=== PATIENT | female | born 1970 | race Caucasian/White ===

== ENCOUNTER → 2016-10-12 | Outpatient (REF) | payer BC, MEDICAID | LOC: M LAB REF 17:12 | PROVIDERS: ATTEND Physician Assistant Medical | DX: J02.9 Acute pharyngitis, unspecified (principal) ==

== ENCOUNTER → 2016-11-03 | Outpatient (CLI) | payer BC, MEDICAID ==
[2016-11-03 20:23] LABS: BASO % 0.4 % (0.0-1.0); EOS # 0.2 K/mm3 (0.0-0.50); EOS % 3.4 % (0.0-3.0); LYMPH # 1.4 K/mm3 (1.5-4.5); LYMPH % 21.1 % (24.0-44.0); MEAN CORPUSCULAR HEMOGLOBIN 28.5 pg (27.0-33.0); MEAN CORPUSCULAR HGB CONC 31.7 g/dl (32.0-36.5); MEAN CORPUSCULAR VOLUME 89.9 fl (80.0-96.0); MONO # 0.3 K/mm3 (0.0-0.8); MONO % 4.4 % (0.0-5.0); NEUTROPHILS # 4.5 K/mm3 (1.8-7.7); NEUTROPHILS % 68.6 % (36.0-66.0); WHITE BLOOD COUNT 6.6 K/mm3 (4.0-10.0)
[2016-11-03 20:25] LABS: ALBUMIN 3.7 GM/DL (3.2-5.2); ALBUMIN/GLOBULIN RATIO 1.06 (1.00-1.93); ALKALINE PHOSPHATASE 82 U/L (45-117); ALT/SGPT 18 U/L (12-78); ANION GAP 11 MEQ/L (8-16); AST/SGOT 12 U/L (15-37); BILIRUBIN,TOTAL 0.5 MG/DL (0.2-1.0); BLOOD UREA NITROGEN 12 MG/DL (7-18); CALCIUM LEVEL 8.6 MG/DL (8.5-10.1); CARBON DIOXIDE LEVEL 22 MEQ/L (21-32); CHLORIDE LEVEL 109 MEQ/L (98-107); CHOLESTEROL LEVEL 180 MG/DL (<200); CREATININE FOR GFR 0.96 MG/DL (0.55-1.02); FOLATE > 24.0 NG/ML (>5.4); GLOMERULAR FILTRATION RATE > 60.0 (>58); GLUCOSE, FASTING 91 MG/DL (70-105); POTASSIUM SERUM 4.2 MEQ/L (3.5-5.1); SODIUM LEVEL 142 MEQ/L (136-145); TOTAL PROTEIN 7.2 GM/DL (6.4-8.2); TRIGLYCERIDES LEVEL 183 MG/DL (<150); VITAMIN B12 LEVEL 623 PG/ML (247-911)
== END ==
LOC: M WUC 13:02
PROVIDERS: ATTEND Physician Assistant Medical
DX: E78.2 Mixed hyperlipidemia (principal); E55.9 Vitamin D deficiency, unspecified; R53.83 Other fatigue

== ENCOUNTER → 2017-02-05 | Outpatient (REF) | payer BC, MEDICAID | LOC: M LAB REF 16:56 | PROVIDERS: ATTEND Physician Assistant Medical | DX: L03.314 Cellulitis of groin (principal) ==

== ENCOUNTER → 2017-02-14 | Outpatient (CLI) | payer BC, MEDICAID ==
[2017-02-14 13:05] LABS: ALBUMIN 3.7 GM/DL (3.2-5.2); ALBUMIN/GLOBULIN RATIO 1.23 (1.00-1.93); ALKALINE PHOSPHATASE 71 U/L (45-117); ALT/SGPT 26 U/L (12-78); ANION GAP 3 MEQ/L (8-16); AST/SGOT 15 U/L (15-37); BILIRUBIN,TOTAL 0.3 MG/DL (0.2-1.0); BLOOD UREA NITROGEN 11 MG/DL (7-18); CALCIUM LEVEL 8.9 MG/DL (8.5-10.1); CARBON DIOXIDE LEVEL 30 MEQ/L (21-32); CHLORIDE LEVEL 106 MEQ/L (98-107); CHOLESTEROL LEVEL 175 MG/DL (<200); CREATININE FOR GFR 1.05 MG/DL (0.55-1.02); GLOMERULAR FILTRATION RATE > 60.0 (>58); GLUCOSE, FASTING 108 MG/DL (70-105); POTASSIUM SERUM 4.7 MEQ/L (3.5-5.1); SODIUM LEVEL 139 MEQ/L (136-145); TOTAL PROTEIN 6.7 GM/DL (6.4-8.2); TRIGLYCERIDES LEVEL 194 MG/DL (<150)
== END ==
LOC: M WUC 08:59
PROVIDERS: ATTEND Physician Assistant Medical
DX: E78.2 Mixed hyperlipidemia (principal); E55.9 Vitamin D deficiency, unspecified

== ENCOUNTER → 2017-06-22 | Outpatient (CLI) | payer BC, MEDICAID ==
[2017-06-22 15:08] LABS: BASO % 0.5 % (0.0-1.0); EOS # 0.2 10^3/uL (0.0-0.50); EOS % 2.2 % (0.0-3.0); IMMATURE GRANULOCYTE % 0.3 % (0-0); LYMPH # 1.7 10^3/uL (1.5-4.5); LYMPH % 21.8 % (24.0-44.0); MEAN CORPUSCULAR HEMOGLOBIN 28.3 pg (27.0-33.0); MEAN CORPUSCULAR HGB CONC 32.4 g/dl (32.0-36.5); MEAN CORPUSCULAR VOLUME 87.2 fl (80.0-96.0); MONO # 0.3 10^3/uL (0.0-0.8); MONO % 4.4 % (0.0-5.0); NEUTROPHILS # 5.5 10^3/uL (1.8-7.7); NEUTROPHILS % 70.8 % (36.0-66.0); PLATELET COUNT, AUTOMATED 223 10^3/uL (150-450); RED CELL DISTRIBUTION WIDTH 13.6 % (11.5-14.5); WHITE BLOOD COUNT 7.8 10^3/uL (4.0-10.0)
[2017-06-22 15:19] LABS: ALBUMIN 3.6 GM/DL (3.2-5.2); ALBUMIN/GLOBULIN RATIO 1.09 (1.00-1.93); ALKALINE PHOSPHATASE 76 U/L (45-117); ALT/SGPT 18 U/L (12-78); ANION GAP 5 MEQ/L (8-16); AST/SGOT 14 U/L (15-37); BILIRUBIN,TOTAL 0.3 MG/DL (0.2-1.0); BLOOD UREA NITROGEN 12 MG/DL (7-18); CALCIUM LEVEL 8.8 MG/DL (8.5-10.1); CARBON DIOXIDE LEVEL 27 MEQ/L (21-32); CHLORIDE LEVEL 107 MEQ/L (98-107); CHOLESTEROL LEVEL 164 MG/DL (<200); CREATININE FOR GFR 0.95 MG/DL (0.55-1.02); GLOMERULAR FILTRATION RATE > 60.0 (>58); GLUCOSE, FASTING 83 MG/DL (70-105); POTASSIUM SERUM 4.2 MEQ/L (3.5-5.1); SODIUM LEVEL 139 MEQ/L (136-145); TOTAL PROTEIN 6.9 GM/DL (6.4-8.2); TRIGLYCERIDES LEVEL 117 MG/DL (<150)
== END ==
LOC: M LAB 13:23
PROVIDERS: ATTEND Physician Assistant Medical
DX: E78.2 Mixed hyperlipidemia (principal); E55.9 Vitamin D deficiency, unspecified

== ENCOUNTER 2018-04-06 11:47 | Emergency (ER) | payer BC, MEDICAID ==
[2018-04-06] MEDS: diazePAM 5 MG TAB PO (12:32)
[2018-04-06] MEDS: KETOROLAC 60 MG/2 ML VIAL (J1885) IM (12:35)
== END 2018-04-06 13:30 | disposition home or self-care (01) ==
LOC: M ED 11:47
DX: M62.830 Muscle spasm of back (principal); M62.838 Other muscle spasm; M54.12 Radiculopathy, cervical region; F41.9 Anxiety disorder, unspecified; Z79.899 Other long term (current) drug therapy; F17.210 Nicotine dependence, cigarettes, uncomplicated
CPT/HCPCS: J1885

== ENCOUNTER → 2018-04-20 | Outpatient (CLI) | payer BC | LOC: M RAD 12:14 | DX: M54.2 Cervicalgia (principal) ==

== ENCOUNTER → 2018-05-17 | Outpatient (CLI) | payer BC, MEDICAID ==
[2018-05-17 14:05] LABS: CHOLESTEROL LEVEL 154 MG/DL (<200); CHOLESTEROL RISK RATIO 3.581 (<5); HDL CHOLESTEROL 43 MG/DL (>40); LDL CHOLESTEROL 89 MG/DL (<100); NON-HDL-C 111 MG/DL; TRIGLYCERIDES LEVEL 111 MG/DL (<150)
[2018-05-17 14:34] LABS: ESTIMATED AVERAGE GLUCOSE 126 MG/DL (60-110)
[2018-05-17 14:38] LABS: HIV 1&2 SCREEN CENTAUR NEGATIVE (NEGATIVE)
[2018-05-17 14:38] LABS: HEPATITIS C VIRUS ABY INDEX 0.1 INDEX (<0.8)
[2018-05-17 15:21] LABS: CHLAMYDIA DNA AMPLIFICATION NEGATIVE (NEGATIVE); GC DNA AMPLIFICATION NEGATIVE (NEGATIVE)
[2018-05-22 14:20] LABS: HLA-B27 Negative (.)
== END ==
LOC: M WUC 11:50
DX: M54.2 Cervicalgia (principal); Z20.2 Contact with and (suspected) exposure to infections with a predominantly sexual mode of transmission; Z13.1 Encounter for screening for diabetes mellitus; Z13.220 Encounter for screening for lipoid disorders
CPT/HCPCS: 83036

== ENCOUNTER 2018-06-13 08:01 | Outpatient (RCR) | payer MEDICAID | END 2018-06-26 | LOC: M PT 08:01 | DX: M54.12 Radiculopathy, cervical region (principal); R29.898 Other symptoms and signs involving the musculoskeletal system | CPT/HCPCS: 97010 ==

== ENCOUNTER 2018-07-04 08:18 | Outpatient (RCR) | payer OTHER | END 2018-07-26 | LOC: M PT 08:18 | DX: M54.12 Radiculopathy, cervical region (principal); N39.3 Stress incontinence (female) (male) | CPT/HCPCS: 97010 ==

== ENCOUNTER 2018-08-13 12:45 | Outpatient (RCR) | payer OTHER ==
[~2018-08-13 12:45] MED LIST: ACETAMINOPHEN-COD; BUSP10TA PO; CITA-231 PO; GABA-843; KETO10TAB PO; PERC5TAB12 PO; PRED20TA PO; REST0.05 OU; ROPI0.5T; SUMA50TA2; TIZA2TA; VALI5TAB PO
== END 2018-08-26 ==
LOC: M PT 12:45
PROVIDERS: ATTEND Orthopaedic Surgery
DX: M54.12 Radiculopathy, cervical region (principal)

== ENCOUNTER → 2018-10-08 | Outpatient (REF) | payer OTHER ==
[2018-10-08 19:16] LABS: C REACTIVE PROTEIN QUANTITATIV 0.51 MG/DL (0.00-0.30); RHEUMATOID FACTOR QUANT < 10.0 IU/ML (<15.0)
[2018-10-10 18:42] LABS: Lyme Disease IgG/IgM Antibodie <0.91 ISR (0.00-0.90); Lyme Disease IgM Ab Quantitati <0.80 index (0.00-0.79)
[2018-10-11 00:07] LABS: ANA (HEP2) Negative (.)
== END ==
LOC: M SFHCPLAZ 16:00
PROVIDERS: ATTEND Family Medicine
DX: M13.0 Polyarthritis, unspecified (principal)

== ENCOUNTER 2018-10-23 12:45 | Outpatient (RCR) | payer OTHER | END 2018-10-24 | LOC: M PT 12:45 | PROVIDERS: ATTEND Orthopaedic Surgery | DX: M25.512 Pain in left shoulder (principal); M25.511 Pain in right shoulder; S46.009A Unspecified injury of muscle(s) and tendon(s) of the rotator cuff of unspecified shoulder, initial encounter; Y92.89 Other specified places as the place of occurrence of the external cause; Y93.89 Activity, other specified; X58.XXXA Exposure to other specified factors, initial encounter; Y99.8 Other external cause status ==

== ENCOUNTER → 2018-12-23 | Outpatient (CLI) | payer OTHER, MEDICAID ==
[~2018-12-23] MED LIST changes: -CITA-231 PO; +CITA40TA6 PO
--- NOTE | 2018-12-24 02:26 | REP ---
Clinical: Right shoulder pain. Technique: Internal rotation, external rotation, and Y view of the right shoulder. Findings: The glenohumeral joint is intact and normal. Cortical irregularity and moderate spurring at the acromioclavicular joint is appreciated with subtle but bulky inferior spur along the distal aspect of the acromion. The subacromial space is normal. No calcified loose bodies are identified. The surrounding soft tissues are normal. Impression: Moderate osteoarthritic degenerative changes involving the acromioclavicular joint. Glenohumeral joint appears normal. Electronically Signed by Arden Grider MD 12/24/2018 02:17 A
== END ==
LOC: M RAD 11:39
PROVIDERS: ATTEND Nurse Practitioner Family
DX: M19.011 Primary osteoarthritis, right shoulder (principal)

== ENCOUNTER 2019-04-24 10:17 | Outpatient (RCR) | payer OTHER | END 2019-04-26 | LOC: M PT 10:17 | PROVIDERS: ATTEND Family Medicine | DX: Z51.89 Encounter for other specified aftercare (principal); M54.12 Radiculopathy, cervical region ==

== ENCOUNTER 2019-04-29 10:31 | Outpatient (RCR) | payer OTHER | END 2019-05-26 | LOC: M PT 10:31 | PROVIDERS: ATTEND Family Medicine | DX: Z51.89 Encounter for other specified aftercare (principal); M54.12 Radiculopathy, cervical region ==

== ENCOUNTER 2019-10-24 12:11 | Day surgery (SDC) | payer OTHER ==
[~2019-10-24] VITALS: Ht 167.6 cm; Wt 127.3 kg
[~2019-10-24 12:11] MED LIST changes: -ROPI0.5T; +ROPI0.5T3
[2019-10-24] MEDS ORDERED: GABA-845 (12:29)
[2019-10-24] MEDS ORDERED: DULO1CAP6 (12:29)
[2019-10-24] MEDS ORDERED: MORPHINE 4 MG/ML 1ML VIAL/SYRINGE (J2270) IV ONE (12:30)
[2019-10-24] MEDS ORDERED: ONDANSETRON 4MG/2ML VIAL (J2405) IV ONE (12:30)
[2019-10-24] MEDS ORDERED: MORPHINE 4 MG/ML 1ML VIAL/SYRINGE (J2270) IV PRN (13:00)
--- NOTE | 2019-10-24 13:38 | REP ---
Left femur four views : There is no fracture or dislocation. Mineralization and joint spaces are normal. There are no calcifications or foreign bodies. Impression: Negative left femur . Electronically Signed by Dada Thomas MD 10/24/2019 01:29 P
--- NOTE | 2019-10-24 13:42 | REP ---
Left tibia-fibula: There is a casting material surrounding the lower leg and ankle. The ankle dislocation that was identified on the ankle series performed earlier today has been reduced. The ankle mortise is widened medially. There is a nondisplaced spiral fracture of the proximal fibular shaft. Electronically Signed by Dada Thomas MD 10/24/2019 01:34 P
[2019-10-24] MEDS ORDERED: CYCL10TA (14:08)
--- NOTE | 2019-10-24 14:10 | REP ---
LEFT ANKLE: Two views. HISTORY: Trauma. FINDINGS: AP and lateral views of the left ankle demonstrate a lateral tibiotalar ankle joint dislocation. The distal fibula remains normally aligned with the lateral surface of the talus. The distal tibiofibular interval is markedly widened indicating disruption of the tibiofibular syndesmosis. There is no visible fracture on these views. Large Achilles and plantar calcaneal spurs are noted. IMPRESSION: Lateral tibiotalar ankle dislocation with disruption of the distal tibiofibular syndesmosis. No definite fracture. Recommend tib/fib radiographs. Electronically Signed by Gary Durham MD 10/24/2019 02:54 P
[2019-10-24 16:03] LABS: BASO # 0.1 10^3/uL (0.0-0.2); BASO % 0.5 % (0.0-1.0); EOS # 0.1 10^3/uL (0.0-0.5); EOS % 0.7 % (0.0-3.0); HEMATOCRIT 47.4 % (36.0-47.0); HEMOGLOBIN 14.8 g/dl (12.0-15.5); LYMPH # 1.6 10^3/uL (1.5-5.0); LYMPH % 11.7 % (24.0-44.0); MEAN CORPUSCULAR HEMOGLOBIN 27.3 pg (27.0-33.0); MEAN CORPUSCULAR HGB CONC 31.2 g/dl (32.0-36.5); MEAN CORPUSCULAR VOLUME 87.5 fl (80.0-96.0); MONO # 0.5 10^3/uL (0.0-0.8); MONO % 3.5 % (0.0-5.0); NEUTROPHILS # 11.1 10^3/uL (1.5-8.5); NEUTROPHILS % 83.2 % (36.0-66.0); PLATELET COUNT, AUTOMATED 284 10^3/uL (150-450); RED BLOOD COUNT 5.42 10^6/uL (4.00-5.40); WHITE BLOOD COUNT 13.3 10^3/uL (4.0-10.0)
[2019-10-24 16:26] LABS: BLOOD UREA NITROGEN 13 MG/DL (7-18); CALCIUM LEVEL 8.7 MG/DL (8.5-10.1); CARBON DIOXIDE LEVEL 27 MEQ/L (21-32); CHLORIDE LEVEL 110 MEQ/L (98-107); CREATININE FOR GFR 0.99 MG/DL (0.55-1.30); GLOMERULAR FILTRATION RATE > 60.0 (>58); GLUCOSE, FASTING 86 MG/DL (70-100); SODIUM LEVEL 141 MEQ/L (136-145)
[2019-10-24] MEDS ORDERED: PERCOCET 5MG/325MG TAB As Ordered ONE (19:00)
[2019-10-24] MEDS ORDERED: ceFAZolin 1GM INJ (J0690 PER 500MG) As Ordered ONE (19:00)
[2019-10-24] MEDS ORDERED: PERCOCET 5MG/325MG TAB PO ONE (19:02)
[2019-10-24] MEDS ORDERED: ceFAZolin 2 GM/D5W 50 ML IV BAG (J0690 PER 500MG) As Ordered ONE (19:04)
[2019-10-24] MEDS ORDERED: METOCLOPRAMIDE INJ 10MG/2ML VIAL (J2765) As Ordered ONE ×2 (19:10→19:55)
[2019-10-24] MEDS ORDERED: LIDOCAINE 2% INJ 100 MG/5 ML SDV (FOR ANES.) As Ordered ONE (19:10)
[2019-10-24] MEDS ORDERED: MIDAZOLAM INJ 2 MG/2 ML VIAL (J2250) As Ordered ONE (19:10)
[2019-10-24] MEDS ORDERED: fentaNYL 100 MCG/2 ML INJECTION (J3010) As Ordered ONE (19:10)
[2019-10-24] MEDS ORDERED: ONDANSETRON 4MG/2ML VIAL (J2405) As Ordered ONE (19:10)
[2019-10-24] MEDS ORDERED: dexameTHASONE 4 MG/ML 1ML VIAL (J1100) As Ordered ONE (19:10)
[2019-10-24] MEDS ORDERED: propofoL 500 MG/50 ML VIAL As Ordered ONE (19:55)
[2019-10-24] MEDS ORDERED: BUPIVACAINE/EPIN 0.25% 30 ML VIAL As Ordered ONE (19:58)
[2019-10-24] MEDS ORDERED: PHENYLephrine HCL 500 MCG/5 ML (100MCG/ML) SYRINGE (J2370) As Ordered ONE (20:29)
[2019-10-24] MEDS ORDERED: MORPHINE 2 MG/ML 1ML VIAL (J2270) IV PRN (21:15)
[2019-10-24] MEDS ORDERED: ONDANSETRON 4MG/2ML VIAL (J2405) IV PRN (21:15)
[2019-10-24] MEDS ORDERED: LR 1,000 ML IV SCH (21:15)
[2019-10-24] MEDS ORDERED: PROMETHAZINE INJ 25 MG/ML VIAL (J2550) IV PRN (21:15)
[2019-10-24] MEDS ORDERED: oxyCODONE 5MG TAB PO PRN (21:15)
[2019-10-24] MEDS ORDERED: D5W/LR 1,000 ML IV SCH (21:15)
[2019-10-24] MEDS ORDERED: PERCOCET 5MG/325MG TAB PO PRN ×2 (21:15)
[2019-10-24] MEDS ORDERED: fentaNYL 100 MCG/2 ML INJECTION (J3010) IV PRN (21:15)
[2019-10-24 21:30] VITALS: BP 136/73
[2019-10-24 22:00] VITALS: BP 138/88
[2019-10-24 23:00] VITALS: BP 114/65
[2019-10-25] VITALS: BP 105/62
[2019-10-25 01:00] VITALS: BP 106/64
[2019-10-25 02:00] VITALS: BP 106/64
[2019-10-25 06:00] VITALS: BP 131/76
--- NOTE | 2019-10-25 07:40 | ER ---
DATE OF CONSULTATION: 10/24/2019 CONSULTATION FOR THE EMERGENCY ROOM CHIEF COMPLAINT: Left ankle dislocation. HISTORY: 49-year-old female; she slipped on icy ground today and heard a snap. She was not able to ambulate, and there was deformity of the left ankle. Does not recall a previous injury to the ankle. She was brought to the emergency room (ER) for further evaluation where imaging studies reflected a syndesmotic injury, widening of mortise, dislocation of the ankle. The ankle was reduced partially in the ER by ER personnel. Orthopedics was consulted. The imaging accomplished reflected again some chronic changes at the medial malleolus, so possible old injury, including some calcification within what is presumed to be deltoid area. A proximal fibula fracture. ALLERGIES: No known drug allergies. MEDICATIONS: Medication list was reviewed with the patient and documented. MEDICAL HISTORY: Includes anxiety. SOCIAL HISTORY: Includes nicotine use, smoking. The patient has been nothing by mouth (n.p.o.). REVIEW OF SYSTEMS: She is only today complaining of left ankle pain. 12 other areas negative. CLINICAL EXAMINATION: She is alert, oriented, cooperative. Mood and affect appropriate. The left ankle is swollen, painful, in a posterior splint, pink, well-perfused. Toes: Sensate toes. No effusion at the knee. Contralateral right side: No swelling or pathology noted on the right. The patient is alert, oriented and cooperative. Mood and affect appropriate. Cardiac: Regular, about 80 beats per minute. She is not short of breath. She is conversant in [place]. IMPRESSION: Syndesmosis injury, deltoid ligament injury, possible chronic, proximal fibula fracture, ankle dislocation. RECOMMENDATIONS: I spoke with the patient about reduction of the syndesmosis and fixation with metal hardware. She agreed to that intervention. We completed a preoperative packet, including consent document and short-form history and physical. The consent involved a edwin discussion of the pathology involved, the procedure proposed, alternatives including doing nothing, and risks, including, but not limited to, pain, failure, need for more surgery, bleeding, blood loss, blood clots and other issues. The patient agreed to proceed with surgery. Coordinated operating room (OR) scheduling with the ER, OR personnel and anesthesia. I talked with the patient about potentially seeing our foot and ankle specialist postoperatively to determine whether any additional intervention could be indicated at the deltoid ligament. The patient is agreeable with that plan. For further details, please refer to the medical record.
[2019-10-25] MEDS ORDERED: ASPI-1 PO (08:26)
[2019-10-25] MEDS ORDERED: PERC5TAB12 PO ×2 (08:26→08:44)
[2019-10-25] MEDS ORDERED: METAMUCIL (PSYLLIUM) PACKET PO SCH (09:00)
[2019-10-25] MEDS ORDERED: ASPIRIN 81 MG ENTERIC TAB PO SCH (09:00)
[2019-10-25 10:00] VITALS: BP 128/72
--- NOTE | 2019-10-25 15:32 | RO ---
DATE OF PROCEDURE: 10/24/2019 PREOPERATIVE DIAGNOSIS: Left ankle syndesmosis rupture with dislocation, deltoid ligament also injured, proximal fibula fracture. POSTOPERATIVE DIAGNOSIS: Left ankle syndesmosis rupture with dislocation, deltoid ligament also injured, proximal fibula fracture. FINDINGS: Include unstable mortise, unstable ankle. PROCEDURE: Closed reduction of the left ankle with percutaneous pinning of the syndesmosis. SURGEON: Rolan Curry MD MRI TECHNICIAN: ANESTHESIA: Spinal, Dr. Mattson ESTIMATED BLOOD LOSS: Less than 5 mL. Replaced with crystalloid. No tourniquet was inflated COMPONENTS USED: Include 4.5 cannulated screw set, 46 mm times one, 50 mm times one, partially threaded both. INDICATIONS FOR SURGERY: Slip on ice, fracture-dislocation, syndesmosis injury. Consent reviewed in detail with the patient including a edwin discussion of the pathology involved, procedure proposed, alternatives including doing nothing, risks including but not limited to pain, failure, infection, bleeding, blood loss, incomplete relief of symptoms, need for additional surgery, possible need for hardware removal, and other issues. The patient agreed to proceed. DESCRIPTION OF PROCEDURE: Identified in the holding area, site and side verified, brought to the operating room. Once the spinal was in, we positioned in the usual fashion. Bump under the left hip. Tourniquet was applied but never inflated for this case. Sterilely prepped and draped in the usual fashion. Next, the fibula was palpated. I utilized fluoroscopy to localize the appropriate screw placement. This was marked with a marking pen. The sites were infiltrated with 0.25% Marcaine with epinephrine. Incision distally was made with a 15 blade knife, developed through subcuticular tissues to the lateral aspect of fibula. Fibular palpated using the Crile. I passed a 4.5 guidewire through the fibula into the tibia, placement of the guidewire verified fluoroscopically, AP and lateral plane, measured for a size 50 mm screw, drilled over the wire, the fibula, as well as the lateral cortex of the tibia. Placed the 50 mm partially threaded screw, visualized it fluoroscopically, AP and lateral plane. Next, additional proximal screw was placed approximately 2 cm proximal. That incision again made with a #15 blade, wire and screw placed in similar fashion, the proximal screw is 46 mm. Final fluoroscopic images in the AP and lateral plane were obtained. I did stress the mortise; it seemed to be stable. Next, once this was accomplished, I irrigated and closed the wounds using nylon stitch. Dressing was applied, sterile [place]bril over the dressing, regular cast padding, followed by placement of a short-leg cast on the left side. Next the patient was then able to be moved to the recovery room in good condition. For further details, please refer to the medical record.
--- NOTE | 2019-10-26 08:00 | REP ---
LEFT ANKLE: Four views of the left ankle are performed. These are fluoroscopic images. Initial images show widening of the medial mortise. There is subsequent placement of two metallic screws in the distal tibia and fibula. Osseous structures are well aligned on the final two images, and the ankle mortise appears anatomic. Fluoroscopy time is 35 seconds. Electronically Signed by Dada Cope MD 10/26/2019 06:07 P
== END 2019-10-25 11:55 | disposition home or self-care (01) ==
LOC: EDBD 12:11 → M ED 12:11 → M SDC 14:25 → ENRESERV 16:27 → M MS5PR 20:35 → M SDC 10-25 11:55
PROVIDERS: ATTEND Orthopaedic Surgery
DX: S93.05XA Dislocation of left ankle joint, initial encounter (principal); S93.422A Sprain of deltoid ligament of left ankle, initial encounter; S82.832A Other fracture of upper and lower end of left fibula, initial encounter for closed fracture; W00.0XXA Fall on same level due to ice and snow, initial encounter; Y92.096 Garden or yard of other non-institutional residence as the place of occurrence of the external cause; Y93.01 Activity, walking, marching and hiking; F41.9 Anxiety disorder, unspecified; M79.7 Fibromyalgia; M54.5 Low back pain; F17.210 Nicotine dependence, cigarettes, uncomplicated; G43.909 Migraine, unspecified, not intractable, without status migrainosus; E66.9 Obesity, unspecified; Z79.899 Other long term (current) drug therapy
CPT/HCPCS: 27842; 36415; 73552; 73590; 73600; 76000; 80048; 85025; 96374; 96375; 97161; 99285; C1713; J0690; J1100; J2250; J2270; J2370; J2405; J2765

== ENCOUNTER → 2020-03-13 | Outpatient (CLI) | payer OTHER ==
[~2020-03-13] MED LIST changes: +ASPI-1 PO; +CYCL-707; +DULO1CAP6; +GABA-845
== END ==
LOC: M LABSMTC 08:16
PROVIDERS: ATTEND Orthopaedic Surgery
DX: Z01.818 Encounter for other preprocedural examination (principal); Z11.59 Encounter for screening for other viral diseases

== ENCOUNTER → 2020-05-13 | Outpatient (CLI) | payer OTHER ==
--- NOTE | 2020-05-13 10:16 | REPVR ---
PROCEDURE INFORMATION: Exam: MR Lumbar Spine Without Contrast. Exam date and time: 05/13/2020 9:17 AM Age: 49 years old Clinical indication: Other: Lumbar radiculopathy TECHNIQUE: Imaging protocol: Multiplanar magnetic resonance images of the lumbar spine without intravenous contrast. COMPARISON: MRI-Spine, L.S. without con 12/03/2013 7:29 AM FINDINGS: Vertebrae: There is 4 mm of grade 1 retrolisthesis of L4 with respect to L5. Normal vertebral body alignment is otherwise preserved. Vertebral body heights are within normal limits. Spinal cord: The conus medullaris terminates at L1/2. L1-L2: There is shallow disc bulging. There is mild facet and ligamentous hypertrophy. There is mild bilateral neural foraminal narrowing. L2-L3: There is shallow disc bulging. There is mild facet hypertrophy. There is mild bilateral neural foraminal narrowing. L3-L4: There is shallow disc bulging with a superimposed focal right foraminal protrusion. There is moderate to severe facet hypertrophy. There is moderate right and mild left neural foraminal narrowing. L4-L5: There is diffuse disc bulging/uncovering related to listhesis. There is moderate to severe facet hypertrophy. There is mild bilateral lateral recess stenosis. There is moderate to severe proximal neural foraminal narrowing bilaterally. L5-S1: There is shallow disc bulging with a prominent right foraminal component. There is severe right and moderate to severe left facet hypertrophy. There is mild right lateral recess stenosis. There is moderate to severe right and mild left neural foraminal narrowing. Disc material comes into close contact with the exiting right L5 nerve root. Soft tissues: Unremarkable. IMPRESSION: Degenerative disc disease and spondylosis as described. Electronically signed by: Neeru Josue On 05/13/2020 10:15:53 AM
== END ==
LOC: M RAD 08:00
PROVIDERS: ATTEND Nurse Practitioner Family
DX: M51.16 Intervertebral disc disorders with radiculopathy, lumbar region (principal); M47.26 Other spondylosis with radiculopathy, lumbar region

== ENCOUNTER → 2021-03-10 | Outpatient (REF) | payer OTHER ==
[~2021-03-10] MED LIST changes: +GABA-282; +GABA-283; -GABA-843; -GABA-845
== END ==
LOC: M SFHCPLAZ 15:03
PROVIDERS: ATTEND Family Medicine
DX: D17.39 Benign lipomatous neoplasm of skin and subcutaneous tissue of other sites (principal)

== ENCOUNTER → 2021-08-25 | Outpatient (CLI) | payer OTHER ==
[2021-08-25 16:00] LABS: HEMATOCRIT 47.5 % (36.0-47.0); HEMOGLOBIN 14.8 g/dl (12.0-15.5); MEAN CORPUSCULAR HEMOGLOBIN 27.6 pg (27.0-33.0); MEAN CORPUSCULAR HGB CONC 31.2 g/dl (32.0-36.5); MEAN CORPUSCULAR VOLUME 88.5 fl (80.0-96.0); PLATELET COUNT, AUTOMATED 260 10^3/uL (150-450); RED BLOOD COUNT 5.37 10^6/uL (4.00-5.40); WHITE BLOOD COUNT 9.3 10^3/uL (4.0-10.0)
[2021-08-25 16:21] LABS: CHOLESTEROL RISK RATIO 5.268 (<5); PERCENT SATURATION 33.2 % (13.2-45.0)
[2021-08-25 16:23] LABS: HEMOGLOBIN A1c 6.4 %
[2021-08-25 17:22] LABS: FOLATE 7.5 NG/ML
== END ==
LOC: M LAB 14:29
PROVIDERS: ATTEND Family Medicine
DX: Z13.220 Encounter for screening for lipoid disorders (principal)

== ENCOUNTER → 2021-10-31 | Outpatient (CLI) | payer OTHER | LOC: M WHC 14:35 | PROVIDERS: ATTEND Family Medicine | DX: Z12.31 Encounter for screening mammogram for malignant neoplasm of breast (principal) ==

== ENCOUNTER → 2021-12-19 | Outpatient (REF) | payer OTHER | LOC: M SFHCPLAZ 10:22 | PROVIDERS: ATTEND Family Medicine | DX: R73.01 Impaired fasting glucose (principal); Z53.9 Procedure and treatment not carried out, unspecified reason ==

== ENCOUNTER → 2021-12-29 | Outpatient (CLI) | payer OTHER | LOC: M RAD 09:19 | PROVIDERS: ATTEND Family Medicine | DX: Z87.891 Personal history of nicotine dependence (principal) ==

== ENCOUNTER → 2022-03-03 | Outpatient (CLI) | payer OTHER ==
[2022-03-03 17:43] LABS: HEMOGLOBIN A1c 6.5 %
== END ==
LOC: M PLALAB 15:31
PROVIDERS: ATTEND Family Medicine
DX: R73.01 Impaired fasting glucose (principal)

== ENCOUNTER → 2022-06-10 | Outpatient (CLI) | payer OTHER | LOC: M RAD 08:55 | PROVIDERS: ATTEND Nurse Practitioner Family | DX: M25.551 Pain in right hip (principal) ==

== ENCOUNTER → 2022-07-31 | Outpatient (CLI) | payer OTHER ==
[2022-07-31 17:07] LABS: HEMATOCRIT 46.5 % (36.0-47.0); HEMOGLOBIN 14.5 g/dl (12.0-15.5); MEAN CORPUSCULAR HEMOGLOBIN 27.9 pg (27.0-33.0); MEAN CORPUSCULAR HGB CONC 31.2 g/dl (32.0-36.5); MEAN CORPUSCULAR VOLUME 89.6 fl (80.0-96.0); PLATELET COUNT, AUTOMATED 260 10^3/uL (150-450); RED BLOOD COUNT 5.19 10^6/uL (4.00-5.40); WHITE BLOOD COUNT 8.8 10^3/uL (4.0-10.0)
[2022-07-31 18:27] LABS: HEMOGLOBIN A1c 6.1 % (4.0-6.0)
[2022-07-31 19:23] LABS: ALBUMIN 3.6 G/DL (3.2-5.2); ALKALINE PHOSPHATASE 104 U/L (46-116); ALT/SGPT 13 U/L (7.0-40); AST/SGOT 14 U/L (<34); BILIRUBIN,TOTAL 0.3 MG/DL (0.3-1.2); BLOOD UREA NITROGEN 12 MG/DL (9-23); CALCIUM LEVEL 8.9 MG/DL (8.5-10.1); CARBON DIOXIDE LEVEL 24 MMOL/L (20-31); CHLORIDE LEVEL 105 MMOL/L (98-107); CHOLESTEROL LEVEL 196 MG/DL (<200); CHOLESTEROL RISK RATIO 5.35 (<5); GLOMERULAR FILTRATION RATE > 60.0 (>51); GLUCOSE, FASTING 103 MG/DL (60-100); HDL CHOLESTEROL 36.6 MG/DL (>40); LDL CHOLESTEROL 119.6 MG/DL (<100); NON-HDL-C 159 MG/DL; POTASSIUM SERUM 4.8 MMOL/L (3.5-5.1); SODIUM LEVEL 139 MMOL/L (136-145); THYROID STIMULATING HORMONE 1.057 uIU/ML (0.55-4.78); TOTAL PROTEIN 6.8 G/DL (5.7-8.2); TRIGLYCERIDES LEVEL 199 MG/DL (<150)
== END ==
LOC: M WUC 14:11
PROVIDERS: ATTEND Student in an Organized Health Care Education/Training Program
DX: E66.01 Morbid (severe) obesity due to excess calories (principal); E55.9 Vitamin D deficiency, unspecified; I10 Essential (primary) hypertension

== ENCOUNTER → 2022-08-04 | Outpatient (CLI) | payer OTHER ==
[2022-08-04 15:41] LABS: HEMATOCRIT 44.1 % (36.0-47.0); HEMOGLOBIN 13.8 g/dl (12.0-15.5)
== END ==
LOC: M PLALAB 11:50
PROVIDERS: ATTEND Student in an Organized Health Care Education/Training Program
DX: N92.1 Excessive and frequent menstruation with irregular cycle (principal)

== ENCOUNTER → 2023-08-16 | Outpatient (CLI) | payer OTHER ==
[~2023-08-16] MED LIST changes: -GABA-283; +GABA-284; -ROPI0.5T3; +ROPI0.5T33
[2023-08-16 11:20] LABS: BASO # 0.1 10^3/uL (0.0-0.2); BASO % 0.6 % (0.0-1.0); EOS # 0.2 10^3/uL (0.0-0.5); EOS % 1.8 % (0.0-3.0); HEMATOCRIT 46.7 % (36.0-47.0); LYMPH % 24.9 % (24.0-44.0); MEAN CORPUSCULAR HEMOGLOBIN 28.2 pg (27.0-33.0); MEAN CORPUSCULAR HGB CONC 32.1 g/dl (32.0-36.5); MEAN CORPUSCULAR VOLUME 87.8 fl (80.0-96.0); MONO # 0.3 10^3/uL (0.0-0.8); MONO % 3.8 % (2.0-8.0); NEUTROPHILS # 5.6 10^3/uL (1.5-8.5); NEUTROPHILS % 68.8 % (36.0-66.0); PLATELET COUNT, AUTOMATED 261 10^3/uL (150-450); RED BLOOD COUNT 5.32 10^6/uL (4.00-5.40); WHITE BLOOD COUNT 8.1 10^3/uL (4.0-10.0)
[2023-08-16 11:43] LABS: ALBUMIN 3.5 G/DL (3.2-5.2); ALKALINE PHOSPHATASE 98 U/L (46-116); ALT/SGPT 16 U/L (7.0-40); AST/SGOT 8 U/L (<34); BILIRUBIN,TOTAL 0.3 MG/DL (0.3-1.2); BLOOD UREA NITROGEN 10 MG/DL (9-23); CALCIUM LEVEL 9.7 MG/DL (8.5-10.1); CARBON DIOXIDE LEVEL 28 MMOL/L (20-31); CHLORIDE LEVEL 108 MMOL/L (98-107); CHOLESTEROL LEVEL 175 MG/DL (<200); CHOLESTEROL RISK RATIO 5.99 (<5); CREATININE FOR GFR 0.85 MG/DL (0.55-1.30); GLOMERULAR FILTRATION RATE > 60.0 (>51); GLUCOSE, FASTING 159 MG/DL (60-100); HDL CHOLESTEROL 29.2 MG/DL (>40); NON-HDL-C 145.8 MG/DL; POTASSIUM SERUM 4.7 MMOL/L (3.5-5.1); SODIUM LEVEL 138 MMOL/L (136-145); TOTAL PROTEIN 6.8 G/DL (5.7-8.2); TRIGLYCERIDES LEVEL 184 MG/DL (<150)
[2023-08-16 11:45] LABS: FREE T4 1.06 NG/DL (0.89-1.76); THYROID STIMULATING HORMONE 1.397 uIU/ML (0.55-4.78); TOTAL 25(OH) VITAMIN D 28.4 NG/ML (20.0-100.0)
[2023-08-16 12:07] LABS: HEMOGLOBIN A1c 8.4 % (4.0-6.0)
== END ==
LOC: M LAB 10:49
PROVIDERS: ATTEND Student in an Organized Health Care Education/Training Program
DX: I10 Essential (primary) hypertension (principal); E78.5 Hyperlipidemia, unspecified; E55.9 Vitamin D deficiency, unspecified; Z68.41 Body mass index [BMI] 40.0-44.9, adult

== ENCOUNTER → 2023-10-03 | Outpatient (CLI) | payer OTHER | LOC: M RAD 08:39 | PROVIDERS: ATTEND Student in an Organized Health Care Education/Training Program | DX: Z87.891 Personal history of nicotine dependence (principal) ==

== ENCOUNTER → 2023-10-19 | Outpatient (CLI) | payer OTHER | LOC: M PLAIMG 08:56 | PROVIDERS: ATTEND Pain Medicine Interventional Pain Medicine | DX: M54.16 Radiculopathy, lumbar region (principal) ==

== ENCOUNTER → 2023-12-04 | Outpatient (CLI) | payer OTHER ==
[2023-12-04 13:42] LABS: ALBUMIN 3.5 G/DL (3.2-5.2); ALKALINE PHOSPHATASE 124 U/L (46-116); ALT/SGPT 32 U/L (7.0-40); AST/SGOT 23 U/L (<34); BILIRUBIN,TOTAL 0.3 MG/DL (0.3-1.2); BLOOD UREA NITROGEN 16 MG/DL (9-23); CALCIUM LEVEL 9.3 MG/DL (8.5-10.1); CARBON DIOXIDE LEVEL 30 MMOL/L (20-31); CHLORIDE LEVEL 103 MMOL/L (98-107); CHOLESTEROL LEVEL 136 MG/DL (<200); CHOLESTEROL RISK RATIO 3.29 (<5); CREATININE FOR GFR 0.91 MG/DL (0.55-1.30); GLOMERULAR FILTRATION RATE > 60.0 (>51); GLUCOSE, FASTING 132 MG/DL (60-100); HDL CHOLESTEROL 41.3 MG/DL (>40); LDL CHOLESTEROL 67.9 MG/DL (<100); NON-HDL-C 94.7 MG/DL; POTASSIUM SERUM 4.6 MMOL/L (3.5-5.1); SODIUM LEVEL 139 MMOL/L (136-145); TOTAL PROTEIN 6.4 G/DL (5.7-8.2); TRIGLYCERIDES LEVEL 134 MG/DL (<150)
[2023-12-04 13:45] LABS: HEMOGLOBIN A1c 6.9 % (4.0-6.0)
== END ==
LOC: M PLALAB 09:55
PROVIDERS: ATTEND Student in an Organized Health Care Education/Training Program
DX: E78.5 Hyperlipidemia, unspecified (principal); E11.9 Type 2 diabetes mellitus without complications

== ENCOUNTER → 2024-01-22 | Outpatient (REF) | payer OTHER | LOC: M SFHCWAGY 10:31 | PROVIDERS: ATTEND Advanced Practice Midwife | DX: Z12.4 Encounter for screening for malignant neoplasm of cervix (principal) ==